=== PATIENT | female | born 1990 | race Caucasian/White ===

== ENCOUNTER 2021-03-13 15:52 | Outpatient (RCR) | payer BC, SELFPAY ==
[2021-03-14] MEDS: RHO(D) IMMUNE GLOBULIN 300 MCG/2 ML SYRINGE IM (14:45)
== END 2021-06-11 23:59 | disposition home or self-care (01) ==
LOC: ANHLAB 15:52
PROVIDERS: PCP Emergency Medicine; Visit Provider Obstetrics & Gynecology
DX: Z29.13 Encounter for prophylactic Rho(D) immune globulin (principal); O02.1 Missed abortion; O36.0190 Maternal care for anti-D [Rh] antibodies, unspecified trimester, not applicable or unspecified; Z3A.00 Weeks of gestation of pregnancy not specified
CPT/HCPCS: 36415; 85461; 90384; 96372; J2790

== ENCOUNTER 2022-08-23 11:32 | Emergency (ER) | payer BC, SELFPAY ==
--- NOTE | ~2022-08-23 | US_ITS ---
EXAMINATION: US OB <= 14 weeks fetus DATE: 08/23/2022 15:24 INDICATION: Bleeding during first trimester TECHNIQUE: Real-time pelvic transabdominal and transvaginal ultrasound was performed. COMPARISON: None. FINDINGS: The uterus measures 8.3 x 3.9 x 7.0 cm. Intrauterine gestational sac and yolk sac are iden tified. There is a 12 mm x 11 mm complex hypoechoic area adjacent to the gestational sac. The p ole is not yet seen. The mean sac diameter measures 1.5 cm, which correlates with an estimated gestat ional age of 6 weeks and 2 day(s) (+/-) 4 day(s). The left ovary is not visualized however no left adnexal abnormality is seen. The right ovary measure s 3.0 x 2.2 x 1.8 cm. There is normal vascular flow in the right ovary. There is no free fluid in the pelvis. IMPRESSION: 1. Intrauterine gestational sac and yolk sac without visible pole, possibly due to early pregna ncy. If the patient is clinically stable, recommend followup with serial beta-hCG and ultrasound. 2. Complex hypoechoic area adjacent to the gestational sac which may represent subchorionic hematoma. Reviewed, dictated and finalized at location [facility] IMPRESSION: 1. Intrauterine gestational sac and yolk sac without visible pole, possib ly due to early . If the patient is clinically stable, recommend follo wup with serial beta-hCG and ultrasound. 2. Complex hypoechoic area adjacent to the gestational sac which may represent subchorionic hematoma.
[2022-08-23 11:33] VITALS: BP 101/60; PULSE 70; RESP 16; TEMP 36.5; O2SAT 100
--- NOTE | 2022-08-23 13:55 | ED.GENADULT ---
HPI - General Adult General Chief complaint: Vaginal Bleeding Stated complaint: vaginal bleeding Time Seen by Provider: 08/23/22 13:43 Source: RN notes reviewed History of Present Illness HPI narrative: Patient presents emergency department from home for vaginal bleeding. Patient states symptoms began 3 days ago with mild bleeding that progressed and patient passed a large blood clots earlier today states that she is approximately 6 weeks and is followed by Dr. Pugh. Patient has states that she has had some lower abdominal cramping with the bleeding but is not taking thing for the symptoms today she denies any fevers or chills chest pain or shortness of breath. States that she had called Dr. Pugh's office and had outpatient lab work today showing negative blood type and did receive RhoGAM prior to coming to the emergency department Related Data Allergies Allergy/AdvReac Type Severity Reaction Status Date / Time No Known Drug Allergies Allergy Unknown . Verified 08/23/22 13:42 PEACHES Allergy Severe HIVES,THROAT Uncoded 12/06/18 12:30 RUFINA Review of Systems Review of Systems: Gen.: Denies fevers or chills ENT: Denies congestion Respiratory: Denies shortness of breath or cough CV: Denies chest pain GI: reports lower abdominal pain denies nausea, emesis or diarrhea see HPI Musculoskeletal: Denies back pain or muscle pain Neuro: Denies numbness, tingling, weakness or focal weakness Skin: Denies rash Except as documented, all other systems reviewed and negative [facility] Past Medical History Medical History (Updated 08/23/22 @ 16:06 by Cole Joya DO) Patient denies significant medical history Social History Social History (Updated 08/23/22 @ 13:57 by Cole Joya DO) Smoking status: Never smoker Exam Narrative: APPEARANCE: No acute distress, nontoxic, resting in bed EYES: EOMI HEENT: Normocephalic, atraumatic, RESPIRATORY: No respiratory distress Clear to auscultation bilaterally with no rhonchi wheezing or rales. CARDIOVASCULAR: Regular rate and rhythm without murmurs rubs or gallops. ABDOMINAL: Soft nondistended mild tenderness palpation of the right lower quadrant and left lower quadrant no tenderness in the right upper quadrant and left upper quadrant no rebound or guarding : Normal external exam, mild amount of dark red blood and clots in vaginal canal the cervix is closed with small amount of blood through the vaginal canal MUSCULOSKELETAl: Moves all extremities. NEURO: Awake and alert. Following commands, speech normal, no focal deficits SKIN:: Warm, dry. No rashes lesions or abrasions PSYCHIATRIC: Normal affect/mood, Course Course Emergency Course: : Discussed with Dr. Pugh for [employer] presentation and work-up agrees plan for discharge with follow-up as an outpatient and states he will arrange patient have repeat beta-hCG blood test Discussed with patient results of workup and diagnosis. Discussed need for follow-up with primary care, proper use of medication, and reasons to return to the emergency department. Patient understands and agrees to current treatment plan Vital Signs Vital signs: Vital Signs Temperature 97.7 F 08/23/22 11:33 Pulse Rate 70 08/23/22 11:33 Respiratory Rate 16 08/23/22 11:33 Blood Pressure 101/60 08/23/22 11:33 Pulse Oximetry 100 08/23/22 11:33 Temperature 97.7 F 08/23/22 11:33 Pulse Rate 70 08/23/22 11:33 Respiratory Rate 16 08/23/22 11:33 Blood Pressure 101/60 08/23/22 11:33 Pulse Oximetry 100 08/23/22 11:33 Medical Decision Making Vital Signs Vital Signs: Vital Signs Temperature 97.7 F 08/23/22 11:33 Pulse Rate 70 08/23/22 11:33 Respiratory Rate 16 08/23/22 11:33 Blood Pressure 101/60 08/23/22 11:33 Pulse Oximetry 100 08/23/22 11:33 Temperature 97.7 F 08/23/22 11:33 Pulse Rate 70 08/23/22 11:33 Respiratory Rate 16 08/23/22 11:33 Blood Pressure 101/60 0
[2022-08-23 14:02] LABS: Basophils Percent Auto 0.3 % (0.2-1.2); Eosinophils Absolute Auto 0.2 K/mm3 (0-0.3); Hematocrit 42.7 % (37.0-47.0); Hemoglobin 14.2 g/dL (12.0-15.0); Immature Granulocyte Absolute 0.04 K/mm3 (0.00-0.031); Immature Granulocyte Percent A 0.4 % (0-0.5); Lymphocytes Absolute Auto 1.94 K/mm3 (0.9-3.2); Lymphocytes Percent Auto 21.2 % (18.3-44.2); Mean Corpuscular HGB Conc 33.3 g/dl (32-36); Mean Corpuscular Hemoglobin 29.7 pg (26-34); Mean Corpuscular Volume 89.3 fl (80-100); Mean Platelet Volume 10.4 fl (7.4-10.4); Monocytes Absolute Auto 0.5 K/mm3 (0.1-0.6); Monocytes Percent Auto 5.1 % (2.6-8.5); Neutrophils Absolute Auto 6.5 K/mm3 (1.3-6.7); Platelet Count Result 255 k/mm3 (150-375); Red Blood Count 4.78 M/mm3 (4.2-5.4); Red Cell Distribution Width 12.7 % (11.5-14.5); White Blood Count 9.2 K/mm3 (4.5-10.0)
[2022-08-23] MEDS: SODIUM CHLORIDE 0.9% IV 1,000 ML 999 ML IV CONT (14:25)
[2022-08-23 16:16] VITALS: BP 102/60; PULSE 64; RESP 12; O2SAT 98
== END 2022-08-23 16:17 | disposition home or self-care (01) ==
PROVIDERS: Emergency Provider Emergency Medicine; PCP Emergency Medicine
DX: O20.0 Threatened abortion (principal); Z3A.01 Less than 8 weeks gestation of pregnancy
CPT/HCPCS: 36415; 76801; 84702; 85025; 96365; 96366; 99284; J0131; J7030

== ENCOUNTER 2022-08-23 13:09 | Outpatient (RCR) | payer BC, SELFPAY ==
[2022-08-23] MEDS: RHO(D) IMMUNE GLOBULIN 300 MCG/2 ML SYRINGE IM (11:22)
[2022-08-26 04:28] LABS: Progesterone 8.8 ng/mL (***)
== END 2022-08-23 13:15 | disposition home or self-care (01) ==
LOC: ANHLAB 13:09
PROVIDERS: PCP Emergency Medicine; Visit Provider Student in an Organized Health Care Education/Training Program
DX: Z29.13 Encounter for prophylactic Rho(D) immune globulin (principal); O20.0 Threatened abortion; O36.0190 Maternal care for anti-D [Rh] antibodies, unspecified trimester, not applicable or unspecified; Z3A.00 Weeks of gestation of pregnancy not specified
CPT/HCPCS: 36415; 84144; 84702; 85461; 86850; 86900; 86901; 90384; 96372; J2790

== ENCOUNTER 2022-10-09 15:39 | Outpatient (CLI) | payer BC, SELFPAY ==
[2022-10-09 15:58] LABS: Basophils Percent Auto 0.3 % (0.2-1.2); Eosinophils Absolute Auto 0.2 K/mm3 (0-0.3); Eosinophils Percent Auto 2.3 % (0-4.4); Hematocrit 36.7 % (37.0-47.0); Hemoglobin 12.6 g/dL (12.0-15.0); Immature Granulocyte Absolute 0.05 K/mm3 (0.00-0.031); Immature Granulocyte Percent A 0.5 % (0-0.5); Lymphocytes Absolute Auto 1.97 K/mm3 (0.9-3.2); Lymphocytes Percent Auto 19.5 % (18.3-44.2); Mean Corpuscular HGB Conc 34.3 g/dl (32-36); Mean Corpuscular Hemoglobin 29.7 pg (26-34); Mean Corpuscular Volume 86.6 fl (80-100); Mean Platelet Volume 10.4 fl (7.4-10.4); Monocytes Absolute Auto 0.5 K/mm3 (0.1-0.6); Monocytes Percent Auto 4.7 % (2.6-8.5); Neutrophils Absolute Auto 7.4 K/mm3 (1.3-6.7); Neutrophils Percent Auto 72.7 % (45.5-73.1); Platelet Count Result 235 k/mm3 (150-375); Red Blood Count 4.24 M/mm3 (4.2-5.4); Red Cell Distribution Width 12.6 % (11.5-14.5); White Blood Count 10.1 K/mm3 (4.5-10.0)
[2022-10-09 16:49] LABS: HIV 1/2 Ab P24 Ag Result Negative (Negative)
[2022-10-09 19:29] LABS: Hepatitis B Surface Antigen Negative (Negative); Rubella IgG Antibody 36.6 IU/ML
[2022-10-10 14:15] LABS: Rapid Plasma Reagin Non-Reactive (NonReactive)
[2022-10-12 09:26] LABS: CMV IgG Antibody <0.60 U/mL (<0.60)
== END 2022-10-09 15:40 | disposition home or self-care (01) ==
LOC: ANHLAB 15:40
PROVIDERS: PCP Emergency Medicine; Visit Provider Student in an Organized Health Care Education/Training Program
DX: N94.89 Other specified conditions associated with female genital organs and menstrual cycle (principal)
CPT/HCPCS: 36415; 84702; 85025; 86592; 86644; 86703; 86747; 86762; 86787; 86850; 86880; 86900; 86901; 87077; 87086; 87088; 87340; G0432

== ENCOUNTER 2023-01-24 15:19 | Outpatient (RCR) | payer BC, SELFPAY ==
[2023-01-24 16:42] LABS: Basophils Percent Auto 0.4 % (0.2-1.2); Eosinophils Absolute Auto 0.2 K/mm3 (0-0.3); Eosinophils Percent Auto 1.9 % (0-4.4); Hematocrit 34.9 % (37.0-47.0); Hemoglobin 11.4 g/dL (12.0-15.0); Immature Granulocyte Absolute 0.12 K/mm3 (0.00-0.031); Immature Granulocyte Percent A 1.1 % (0-0.5); Lymphocytes Absolute Auto 2.01 K/mm3 (0.9-3.2); Lymphocytes Percent Auto 18.7 % (18.3-44.2); Mean Corpuscular HGB Conc 32.7 g/dl (32-36); Mean Corpuscular Hemoglobin 29.1 pg (26-34); Mean Platelet Volume 9.7 fl (7.4-10.4); Monocytes Absolute Auto 0.8 K/mm3 (0.1-0.6); Monocytes Percent Auto 7.4 % (2.6-8.5); Neutrophils Absolute Auto 7.6 K/mm3 (1.3-6.7); Neutrophils Percent Auto 70.5 % (45.5-73.1); Platelet Count Result 224 k/mm3 (150-375); Red Blood Count 3.92 M/mm3 (4.2-5.4); Red Cell Distribution Width 14.4 % (11.5-14.5); White Blood Count 10.7 K/mm3 (4.5-10.0)
[2023-01-24 16:51] LABS: Glucose 1 Hour PP 50gm Dose 95 mg/dL
[2023-01-24 17:32] LABS: HIV 1/2 Ab P24 Ag Result Negative (Negative)
[2023-01-25] MEDS: RHO(D) IMMUNE GLOBULIN 300 MCG/2 ML SYRINGE IM (16:46)
== END 2023-04-24 23:59 | disposition home or self-care (01) ==
LOC: ANHLAB 15:19
PROVIDERS: PCP Emergency Medicine; Visit Provider Obstetrics & Gynecology
DX: Z11.4 Encounter for screening for human immunodeficiency virus [HIV] (principal); Z29.13 Encounter for prophylactic Rho(D) immune globulin; O36.0190 Maternal care for anti-D [Rh] antibodies, unspecified trimester, not applicable or unspecified; Z3A.00 Weeks of gestation of pregnancy not specified
CPT/HCPCS: 36415; 82947; 85025; 85461; 86703; 86850; 86900; 86901; 90384; G0432; J2790

== ENCOUNTER 2023-04-09 02:17 | Inpatient (IN) | payer BC, SELFPAY ==
[2023-04-09] VITALS (172 sets, daily range): BP systolic 95–138; BP diastolic 53–111; PULSE 84–247; RESP 16–18; TEMP 36.6–38.6; O2SAT 69–100; BMI 32.2
[2023-04-09] MEDS: LACTATED RINGERS 1,000 ML 125 ML IV CONT ×4 (03:00→14:21)
[2023-04-09] MEDS: ONDANSETRON INJ 4 MG/2 ML VIAL IV PUSH (03:03)
[2023-04-09 03:10] LABS: Basophils Percent Auto 0.2 % (0.2-1.2); Eosinophils Percent Auto 0.2 % (0-4.4); Hematocrit 41.5 % (37.0-47.0); Hemoglobin 13.8 g/dL (12.0-15.0); Immature Granulocyte Absolute 0.11 K/mm3 (0.00-0.031); Immature Granulocyte Percent A 0.9 % (0-0.5); Lymphocytes Absolute Auto 0.85 K/mm3 (0.9-3.2); Lymphocytes Percent Auto 6.9 % (18.3-44.2); Mean Corpuscular HGB Conc 33.3 g/dl (32-36); Mean Corpuscular Hemoglobin 29.4 pg (26-34); Mean Corpuscular Volume 88.3 fl (80-100); Mean Platelet Volume 11.2 fl (7.4-10.4); Monocytes Absolute Auto 0.5 K/mm3 (0.1-0.6); Monocytes Percent Auto 4.2 % (2.6-8.5); Neutrophils Absolute Auto 10.7 K/mm3 (1.3-6.7); Neutrophils Percent Auto 87.6 % (45.5-73.1); Platelet Count Result 199 k/mm3 (150-375); Red Cell Distribution Width 14.4 % (11.5-14.5); White Blood Count 12.3 K/mm3 (4.5-10.0)
[2023-04-09 04:11] LABS: SARS-CoV-2 RNA PCR Negative (Negative)
--- NOTE | 2023-04-09 05:37 | WPDANESEPP ---
Anes - Eval Pre Procedure Procedure: labor epidural Date/Time: 04/09/23 05:37 Pre Op Diagnosis: IOL Patient Data Age: 32 Gender: F Height: 1.57 m Weight: 80 kg Last Vital Signs Temp 37.3 C 04/09/23 03:00 Pulse 118 H 04/09/23 02:34 Resp 16 04/09/23 02:43 BP 115/77 04/09/23 02:34 Pulse Ox 100 04/09/23 03:05 O2 Del Method Room Air 04/09/23 02:43 Allergies Allergy/AdvReac Type Severity Reaction Status Date / Time No Known Drug Allergies Allergy Unknown . Verified 04/03/23 16:59 PEACHES Allergy Severe HIVES,THROAT Uncoded 04/03/23 16:59 SWELLS Home Medications Medication Instructions Recorded Confirmed Type citalopram 20 mg tablet (Celexa) 20 mg PO DAILY 09/14/22 04/03/23 History ferrous sulfate 325 mg (65 mg 325 mg PO DAILY 03/04/23 04/03/23 History iron) tablet vit no.95-ferrous 1 tablet PO DAILY 03/20/23 04/03/23 History fumarate 28 mg-folic acid 800 mcg tablet () Laboratory Tests 04/09/23 04/09/23 02:39 03:26 WBC 12.3 H K/mm3 (4.5-10.0) RBC 4.70 M/mm3 (4.2-5.4) Hgb 13.8 g/dL (12.0-15.0) Hct 41.5 % (37.0-47.0) MCV 88.3 fl (80-100) MCH 29.4 pg (26-34) MCHC 33.3 g/dl (32-36) RDW 14.4 % (11.5-14.5) Plt Count 199 k/mm3 (150-375) MPV 11.2 H fl (7.4-10.4) Immature Gran % (Auto) 0.9 H % (0-0.5) Neut % (Auto) 87.6 H % (45.5-73.1) Lymph % (Auto) 6.9 L % (18.3-44.2) [place] % (Auto) 4.2 % (2.6-8.5) Eos % (Auto) 0.2 % (0-4.4) Baso % (Auto) 0.2 % (0.2-1.2) Lymph # (Auto) 0.85 L K/mm3 (0.9-3.2) [place] # (Auto) 0.5 K/mm3 (0.1-0.6) Eos # (Auto) 0.0 K/mm3 (0-0.3) Baso # (Auto) 0.0 K/mm3 (0.0-0.1) Abs Immat Gran (auto) 0.11 H K/mm3 (0.00-0.031) Absolute Neuts (auto) 10.7 H K/mm3 (1.3-6.7) Absolute Nucleated RBC 0.0 K/mm3 (0.0-0.012) Nucleated RBC % 0.0 % (0.0-0.2) RPR Pending SARS-CoV-2 RNA (RT-PCR) Negative (Negative) Patient hx anesthesia problems: none Family hx anesthesia problems: none Results Review: All pre-operative results and documents have been reviewed as part of the pre-operative evaluation. [facility] Past Medical History Medical History Anxiety Depression Patient denies significant medical history Suppression of menses Surgical History Surgical History H/O gynecological procedure 2019 nexplanon insertion 2020 nexplanon removal Family History Family History Grandparent Heart disease Malignant neoplasm of lung Other No pertinent family history in first degree relatives Social History Social History Smoking status: Former smoker Tobacco type: cigarettes Second hand tobacco smoke exposure: No Alcohol intake: former Substance use: never Lack of Transportation: No Lack of Food: Never True Current Housing: I Have Housing Concerned About Future Housing: No Difficulty Paying Gas/Electric Bills: No Difficulty Paying for Meds: No Currently Unemployed: No Education: High School Diploma/GED Difficulty w/ Childcare or Family Care: No Living arrangements: other Additional living arrangements comments: spouse and child Occupation/Education: occupation Gender identity (if verbalized by the patient): Female Sexual Orientation (if Verbalized by the Patient): Straight or Heterosexual Spiritual care concerns: No Exam Day of Procedure 04/09/23 05:37 Patient weight: obese Heart: regular rate and rhythm Lungs: normal air movement Airway: Mallampati scale Neurological: alert and oriented
--- NOTE | 2023-04-09 07:01 | PM.IMHP ---
H&P: HPI History of Present Illness Date/Time: 04/09/23 07:01 Chief Complaint: contractions Narrative: Dimple is a 32yo @ 39.1wks who presented overnight in labor; made change to 3.5cm. She denies VB or LOF. Feeling good movement. Now s/p epidural and comfortable. Her is complicated by: - Rh neg, s/p rhogam Review of Systems Constitutional: Constitutional: Denies chills, Denies fever(s) and Denies headache(s) Eyes: Eyes: Denies change in vision ENT: Denies headache(s) Cardiovascular: Cardiovascular: Denies chest pain and Denies dyspnea Respiratory: Respiratory: Denies dyspnea Genitourinary: Genitourinary: Denies abnormal vaginal bleeding and Denies vaginal discharge Neurologic: Denies headache(s) Psychiatric: Psychiatric: Denies anxiety and Denies depression PMFSH Past Medical History Medical History Anxiety Depression Patient denies significant medical history Suppression of menses Surgical History Surgical History H/O gynecological procedure 2019 nexplanon insertion 2020 nexplanon removal Family History Family History Grandparent Heart disease Malignant neoplasm of lung Other No pertinent family history in first degree relatives Social History Social History Smoking status: Former smoker Tobacco type: cigarettes Second hand tobacco smoke exposure: No Alcohol intake: former Substance use: never Lack of Transportation: No Lack of Food: Never True Current Housing: I Have Housing Concerned About Future Housing: No Difficulty Paying Gas/Electric Bills: No Difficulty Paying for Meds: No Currently Unemployed: No Education: High School Diploma/GED Difficulty w/ Childcare or Family Care: No Living arrangements: other Additional living arrangements comments: spouse and child Occupation/Education: occupation Gender identity (if verbalized by the patient): Female Sexual Orientation (if Verbalized by the Patient): Straight or Heterosexual Spiritual care concerns: No Meds Home Medications and Allergies Home Medications Medication Instructions Recorded Confirmed Type citalopram 20 mg tablet (Celexa) 20 mg PO DAILY 09/14/22 04/03/23 History ferrous sulfate 325 mg (65 mg 325 mg PO DAILY 03/04/23 04/03/23 History iron) tablet vit no.95-ferrous 1 tablet PO DAILY 03/20/23 04/03/23 History fumarate 28 mg-folic acid 800 mcg tablet () Allergies Allergy/AdvReac Type Severity Reaction Status Date / Time No Known Drug Allergies Allergy Unknown . Verified 04/03/23 16:59 PEACHES Allergy Severe HIVES,THROAT Uncoded 04/03/23 16:59 SWELLS Vital Signs Vital Signs - 24 hr 04/09/23 02:34 04/09/23 03:05 04/09/23 03:00 Temperature 99.2 F Pulse Rate 118 H Respiratory Rate Blood Pressure 115/77 Pulse Oximetry 100 Oxygen Delivery 04/09/23 06:04 04/09/23 06:06 04/09/23 06:07 Temperature Pulse Rate 101 H 111 H Respiratory Rate Blood Pressure 113/67 123/66 Pulse Oximetry 100 Oxygen Delivery 04/09/23 06:08 04/09/23 06:09 04/09/23 06:10 Temperature Pulse Rate 112 H 112 H Respiratory Rate Blood Pressure 123/69 133/75 Pulse Oximetry 100 Oxygen Delivery 04/09/23 06:13 04/09/23 06:14 04/09/23 06:16 Temperature Pulse Rate 109 H 107 H 103 H Respiratory Rate Blood Pressure 135/59 L 138/75 131/80 Pulse Oximetry 100 Oxygen Delivery 04/09/23 06:19 04/09/23 06:20 04/09/23 06:22 Temperature Pulse Rate 105 H 105 H 105 H Respiratory Rate Blood Pressure 130/75 122/66 130/76 Pulse Oximetry 100 Oxygen Delivery 04/09/23 06:24 04/09/23 06:25 04/09/23 06:28 Temperature Pulse Rate 104 H 94 Respir
[2023-04-09] MEDS: OXYTOCIN 30 UNITS/NS 500 ML 30 UNITS/500 ML BAG IV CONT (07:24)
--- NOTE | 2023-04-09 07:24 | WPDHPUPDATE1 ---
History and Physical Update Update Date/Time: 04/09/23 07:24 History and Physical has been reviewed, including an updated exam of the patient. There are NO changes in the patient's condition. Risks, benefits, and alternatives have been discussed and questions answered. Patient agrees to proceed with procedure.
--- NOTE | 2023-04-09 12:17 | PM.OBPNLAB ---
Pain Control Date/time seen: 04/09/23 12:17 Pain control: epidural Pelvic Exam Dilation (cm): 7 Effacement (%): 80 station: 0 Amniotic membrane status: Ruptured Contractions Monitor mode: External Contraction frequency: 2 (-4) Status status: Category l Assessment and Plan Pitocin rate (mU/min): 10 Assessment: active labor Plan: continuous present management
[2023-04-09 13:38] LABS: Appearance Urine Cloudy (Clear); Bacteria Urine None Seen /hpf; Bilirubin Urine 1+ (Negative); Blood Urine 2+ (Negative); Color Urine Dark Yellow (Yellow); Glucose Urine UA Negative (Negative); Ketones Urine 4+ mg/dL (Negative); Leukocyte Esterase Ur Trace LEU/UL (Negative); Nitrate Urine Negative (Negative); Non Pathogenic Casts 0-2; Protein Urine 2+ mg/dL (Negative); RBC Urine 21-50 /hpf (0-2); Specific Grav Ur 1.019 (1.001-1.035); Squamous Epithelial Cell Urine Moderate /hpf (Few); Urobilinogen Urine 0.2 mg/dL (<2.0); pH Urine 6.5 (5.0-9.0)
[2023-04-09 13:42] LABS: Add Urine Microscopic? YES
[2023-04-09 14:41] LABS: Rapid Plasma Reagin Non-Reactive (NonReactive)
[2023-04-09] MEDS: miSOPROStol 200 MCG TABLET 800 MCG RECTAL (14:55)
[2023-04-09] MEDS: OXYTOCIN 10 UNITS/ML VIAL IM (15:00)
[2023-04-09] MEDS: OXYTOCIN 10 UNITS/ML VIAL (15:00)
[2023-04-09] MEDS: OXYTOCIN 30 UNITS/NS 500 ML 30 UNITS/500 ML BAG 125 UNITS IV CONT (15:35)
[2023-04-09] MEDS: miSOPROStol 200 MCG TABLET 800 MCG (15:36)
[2023-04-09] MEDS: WITCH HAZEL 40 PADS 1 PAD TOPICAL (15:56)
[2023-04-09] MEDS: ACETAMINOPHEN 325 MG TABLET 650 MG PO (15:56)
[2023-04-09] MEDS: IBUPROFEN 600 MG TABLET PO (15:57)
[2023-04-09] MEDS: ceFAZolin 2 GM/D5W 50 ML 2 GM/50 ML BAG IVPB (16:38)
--- NOTE | 2023-04-09 16:44 | PM.OBPRVD ---
OB - Delivery Note Procedure Delivery date: 04/09/23 Events: Elective Induction of Labor Induction method: Per Pitocin Protocol Delivery augmentation: Rupture of Membranes Delivery monitor: External FHT and External Uterine Route of delivery: Laceration Description: None Specimen: Yes (placenta) Quantitative Blood Loss (ml): 450 Anesthesia type: Epidural Disposition: Floor Baby Date of : 04/09/23 Time of : 14:41 Weeks of gestation at delivery: 39 (.1) Infant gender: Female Weight (pounds): 8 Weight (ounces): 7 presentation: vertex position: Right Occiput Anterior Placenta delivery description: Expressed and Manual Removal (small succinate lobe?) Cord Vessel Description: 3 Vessels, Nuchal Cord, Reduced and Clamped/Cut score one minute: 5 score five minutes: 7 Narrative: Dimple progressed to complete dilation and began pushing with good maternal effort. She delivered the head over intact perineum. Nuchal cord was noted and reduced without complications. Slight head retraction was noted and gentle downward traction was applied with minimal movement noted. The posterior shoulder was palpated and slightly rotated counter-clockwise. Gentle pressure was once again applied to the anterior shoulder and it then delivered without complication. The infant was immediately placed skin to skin where decreased tone and no cry was heard. The umbilical cord was then clamped and cut and the pediatric nurse took the baby over to the warmer. A segment of the cord was collected for cord gases. The remaining cord blood was collected for typing. With Pitocin running and gentle downward traction on the cord, the placenta delivered without complications. Bimanual massage was performed and atony was noted. A manual sweep was performed where a piece of placenta with membranes was noted and removed without complication. She was then noted to have good tone with minimal bleeding. She was examined and no lacerations were identified. She continued to have good tone with minimal bleeding. Sponge, lap, instrument, needle counts were correct at the end the procedure Dimple was left in a stable condition while her daughter was taken to the nursery for further monitoring. [facility] Delivery Billing Delivery Delivery: Delivery Charge
--- NOTE | 2023-04-09 17:27 | OBPPTRN ---
Patient transferred to post room # 283 via wheelchair accompanied by family and and spouse. PT introductions made and plan of care discussed per post , pain management, bottle feeding, daily care activities. PT and family recipients of such instructions and no barriers to learning identified at this time. PT received such instructions per one to one discussion, mom baby care guide and demonstrations this shift. PT Oriented to unit, room, information board, rooming in, admission packet and security measures. Patient verbalizes understanding.
[2023-04-10 00:20] VITALS: BP 104/62; PULSE 88; RESP 16; TEMP 36.1
[2023-04-10] MEDS: IBUPROFEN 600 MG TABLET PO ×2 (04:42→19:38)
[2023-04-10 05:31] LABS: Hematocrit 34.4 % (37.0-47.0); Hemoglobin 11.6 g/dL (12.0-15.0)
[2023-04-10 06:36] VITALS: BP 124/76; PULSE 81; RESP 14; TEMP 36.6; O2SAT 97
--- NOTE | 2023-04-10 06:49 | P.PNOB_ITS ---
OB - PN: Subj Subjective Date/time seen: 04/10/23 06:49 Narrative: PPD#1 Dimple reports doing well today. Her bleeding is visual coordinator. Her pain is controlled. She is tolerating regular diet, voiding, passing gas, and ambulating without issues. She is bottle feeding. Afebrile overnight. OB - PN: Obj Data Labs 04/10/23 04:48 Labs: Laboratory Results - last 24 hr 04/09/23 04/09/23 04/10/23 02:39 13:23 04:48 Hgb 11.6 L Hct 34.4 L Urine Color Dark yellow Urine Appearance Cloudy H Urine pH 6.5 Ur Specific [place] 1.019 Urine Protein 2+ H Urine Glucose (UA) Negative Urine Ketones 4+ H Ur Blood (Man) 2+ H Urine Nitrate Negative Urine Bilirubin 1+ H Urine Urobilinogen 0.2 Leukocyte Esterase Rfl Trace H Urine RBC 21-50 H Urine WBC 6-10 H Ur Squamous Epith Cells Moderate Urine Bacteria None seen Urine Casts 0-2 RPR Non-reactive Blood Type A Negative Antibody Screen Positive Antibody Identification Inconclusive Antigen Identification TNP NATHAN, IgG Interpret Not Performed NATHAN, Poly Interpret Negative NATHAN, Complement Interp Not Performed OB - PN A/P Assessment and Plan (1) Normal vaginal delivery of second : Code(s): O80 - Encounter for full-term uncomplicated delivery Status: Acute Plan day: 1 Plan: routine care and discharge home (tomorrow) Comments: - monitoring temps; afebrile overnight; s/p ancef x1, urine culture pending - hydration/ambulation - pain meds, reg diet Time Spent With Patient Time: Total time spent is greater than 50% in coordination of care (as documented) at patient's floor/unit and/or counseling patient: Review of Systems Constitutional: Constitutional: Denies chills, Denies fever(s) and Denies headache(s) Eyes: Eyes: Denies change in vision ENT: Denies dizziness and Denies headache(s) Cardiovascular: Cardiovascular: Denies chest pain, Denies palpitations and Denies dyspnea Respiratory: Respiratory: Denies cough and Denies dyspnea Gastrointestinal: Gastrointestinal: Denies nausea and Denies vomiting Neurologic: Denies dizziness and Denies headache(s) Endocrine: Endocrine: Denies palpitations Exam Const: General: cooperative, comfortable and no acute distress Orientation/consciousness: patient oriented x3 Resp: Effort & Inspection: normal respiratory effort Auscultation: clear to auscultation bilaterally Cardio: Rate: regular rate GI: Inspection: non-distended GI Palp: No abdominal tenderness and Yes Soft to palpation Auscultation: normal bowel sounds : Other: fundus firm Skin: General skin exam: normal color Neuro: General: patient oriented x3 Extrem: General: normal to inspection Psych: Appearance: grossly normal Affect: normal affect Attitude: cooperative
[2023-04-10 08:00] VITALS: PULSE 81; RESP 14; O2SAT 97
--- NOTE | 2023-04-10 09:33 | PC.NURSE ---
On 04/10/23, the student, Siri Luevano, provided care and completed [facility] documentation on this patient. I have reviewed the student's documentation and agree with the findings.
[2023-04-10] MEDS: CITALOPRAM HYDROBROMIDE 20 MG TABLET PO (09:54)
[2023-04-10] MEDS: RHO(D) IMMUNE GLOBULIN 300 MCG/2 ML SYRINGE IM (10:16)
--- NOTE | 2023-04-10 10:46 | WPDANLDPN2 ---
Anes-Prog Note L&D Date/Time: 04/10/23 10:46 Comfortable throughout: labor and delivery Neuraxial method: epidural Epidural/Spinal procedure site: clean & non-tender Neuro status: Neuro function grossly intact. Cardiovascular status: normal Respiratory status: normal Airway patency: baseline Mental status: baseline Post-Op hydration status: normal Vital Signs: Last Vital Signs Temp 36.6 C 04/10/23 06:36 Pulse 81 04/10/23 06:36 Resp 14 04/10/23 06:36 BP 124/76 04/10/23 06:36 Pulse Ox 97 04/10/23 06:36 O2 Del Method Room Air 04/09/23 02:43 Pain score (VAS): 3/10 I/O: Intake & Output 04/09/23 04/10/23 04/10/23 23:59 07:59 15:59 Intake Total 1550 Balance 1550 Post-procedural complaints: none Patient feedback: Patient satisfied with anesthetic care.
[2023-04-10 11:07] VITALS: BP 119/80; PULSE 83; RESP 16; TEMP 36.5; O2SAT 98
--- NOTE | 2023-04-10 12:09 | PC.NURSE ---
On 04/10/23, the student, Siri Luevano, provided care and completed [facility] documentation on this patient. I have reviewed the student's documentation and agree with the findings.
[2023-04-10 19:35] VITALS: BP 117/78; PULSE 90; RESP 16; TEMP 37.1
--- NOTE | 2023-04-11 07:15 | P.DS_ITS ---
DS: Admitting Diagnosis Discharge Date 04/11/23 Admitting Diagnosis Elective induction of labor DS: Discharge Diagnosis Discharge Diagnosis (1) Normal vaginal delivery of second : Code(s): O80 - Encounter for full-term uncomplicated delivery Status: Acute OB - DS: Summary OB Procedures : Ultrasound OB Procedures Intrapartum: Spontaneous Vag Delivery OB Procedures: : None Peripartum Data Delivery Method: Natural Vaginal Laceration Description: None complications: none [place] 1: Gender: Female Disposition of : home Status at Discharge Functional status at discharge: independent ambulation Overall status at discharge: patient is back to baseline Time Spent with Patient Time attestation: Total time spent providing and/or coordinating discharge services: Time spent: Less than 30 minutes Exam Const: General: cooperative, healthy appearing, comfortable and no acute distress Orientation/consciousness: patient oriented x3 Resp: Effort & Inspection: normal respiratory effort Auscultation: clear to auscultation bilaterally Cardio: Rate: regular rate GI: Inspection: non-distended GI Palp: No abdominal tenderness and Yes Soft to palpation Auscultation: normal bowel sounds : Other: fundus firm Skin: General skin exam: normal color Neuro: General: patient oriented x3 Extrem: General: normal to inspection Psych: Appearance: grossly normal Affect: normal affect Attitude: cooperative DS: Data Data Completed and Pending Pending studies at discharge: Pending at discharge 04/09/23 14:47 Surgical [PTH] Routine Labs on day of discharge: Labs from last 24 hours 04/10/23 04:48 Blood Type A Negative Antibody Screen Negative Screen Negative Baby's Blood Type A pos Baby's NATHAN Positive Doses of RhIg Required 1 Discharge Plan Discharge Attending physician on discharge: Monica Gil Discharging Clinician: Monica Gil Anticipated Discharge Date/Time: 04/11/23 11:00 Patient Disposition: Home, Self-Care Activity: may shower and pelvic rest Diet: regular Patient Instructions: Vaginal Delivery (DC) Stand Alone Forms: General Discharge Information Follow-up/Referrals: Monica Gil MD [Physician] - 4 Weeks Discharge Medications: New acetaminophen [Mapap (acetaminophen)] 325 mg Tablet 650 mg PO Q6H PRN (Reason: Mild Pain (1-3) Or Headache) Qty: 60 0RF docusate sodium 100 mg Capsule 100 mg PO BID PRN (Reason: Constipation) Qty: 120 0RF ibuprofen 600 mg Tablet 600 mg PO Q6H PRN (Reason: Cramping) Qty: 40 0RF Continued citalopram [Celexa] 20 mg tablet 20 mg PO DAILY ferrous sulfate 325 mg (65 mg iron) tablet 325 mg PO DAILY PNV cmb#95-ferrous fumarate-FA [] 28 mg iron- 800 mcg Tablet 1 tablet PO DAILY Date of admission: 04/09/23 02:17 Primary Care Provider: Jeremiah Bobby Admitting Provider: Monica Gil Attending physician on admission: Monica Gil Condition: Stable
[2023-04-11 07:50] VITALS: BP 104/69; PULSE 100; RESP 16; TEMP 37.4; O2SAT 100
[2023-04-11 08:00] VITALS: PULSE 70; RESP 16; O2SAT 100
[2023-04-11] MEDS: CITALOPRAM HYDROBROMIDE 20 MG TABLET PO (09:43)
[2023-04-11] MEDS: IBUPROFEN 600 MG TABLET PO (09:44)
--- NOTE | 2023-04-11 10:33 | PC.NURSE ---
Patient viewed the discharge video Mother & Baby Care, The First Two Weeks . Patient was given the opportunity and encouraged to ask questions. Patient verbalized understanding of information shared and has been given the mother/baby guide for home reference.
[2023-04-12 11:22] VITALS: BP 106/68; PULSE 77; RESP 18; TEMP 37.3; O2SAT 100
== END 2023-04-11 11:43 | disposition home or self-care (01) | DRG 807 ==
LOC: ANHLDR 02:23 → ANHOB2 17:31
PROVIDERS: Admitting Provider Obstetrics & Gynecology; PCP Emergency Medicine; Visit Provider Obstetrics & Gynecology
DX: O43.193 Other malformation of placenta, third trimester (principal); Z37.0 Single live birth; Z3A.39 39 weeks gestation of pregnancy; O69.81X0 Labor and delivery complicated by cord around neck, without compression, not applicable or unspecified; O26.893 Other specified pregnancy related conditions, third trimester
CPT/HCPCS: 36415; 81001; 85014; 85018; 85025; 85461; 86592; 86850; 86880; 86900; 86901; 87086; 87635; 88307; 90384; A9270; J0690; J2405; J2590; J2790; J7120

== ENCOUNTER 2023-06-03 11:18 | Outpatient (CLI) | payer BC, SELFPAY ==
[2023-06-03 12:04] LABS: Beta HCG Quantitative < 2.39 mIU/ML
== END 2023-06-03 11:19 | disposition home or self-care (01) ==
LOC: ANHLAB 11:19
PROVIDERS: PCP Emergency Medicine; Visit Provider Obstetrics & Gynecology
DX: N92.6 Irregular menstruation, unspecified (principal)
CPT/HCPCS: 36415; 84702